=== PATIENT | male | born 1960 | race Hispanic/Latino ===

== ENCOUNTER 2016-12-23 08:11 | Emergency (ER) | payer BC ==
[2016-12-23 08:11] VITALS: BMI 34.5
[2016-12-23] MEDS ORDERED: Sodium Chloride 0.9% 1,000 ML IV STA (08:26)
--- NOTE | 2016-12-23 08:31 | ED PDOC ---
Arrival/HPI - General Chief Complaint: Abdominal Pain Time Seen by Provider: 12/23/16 08:12 Historian: Patient, Spouse - History of Present Illness Narrative History of Present Illness (Text): 12/23/16 08:19 A 56 year old male, whose medical history includes a ventral hernia, presents to the emergency department for abdominal pain and diarrhea, which began 1 day ago. The patient was sent in by his GI doctor, Dr. Kaye and is requesting a CT with PO contrast. The patient denies any fever, vomiting, urinary changes, or any other complaits at this time. Time/Duration: 24 hours Symptom Onset: Sudden Symptom Course: Unchanged Activities at Onset: Light Context: Home Past Medical History - Provider Review Nursing Documentation Reviewed: Yes - Infectious Disease Hx of Infectious Diseases: None - Tetanus Immunization Tetanus Immunization: Unknown - Cardiac Hx Hyperlipemia: Yes - Psychiatric Hx Depression: No Hx Emotional Abuse: No Hx Physical Abuse: No Hx Substance Use: No - Past Surgical History Past Surgical History: No Previous - Surgical History Hx Orthopedic Surgery: Yes Other/Comment: abd hrnia, - Anesthesia Hx Anesthesia Reactions: No - Suicidal Assessment Feels Threatened In Home Enviroment: No Family/Social History - Physician Review Nursing Documentation Reviewed: Yes Family/Social History: No Known Family HX Smoking Status: Unknown If Ever Smoked Hx Alcohol Use: Yes Frequency of alcohol use: Socially Hx Substance Use: No Allergies/Home Meds Allergies/Adverse Reactions: Allergies No Known Allergies Allergy (Verified 12/23/16 08:25) Home Medications: Home Meds Medication Instructions Recorded Confirmed Omeprazole 20 mg PO DAILY 12/23/16 12/23/16 Review of Systems - Physician Review All systems were reviewed & negative as marked: Yes - Review of Systems Constitutional: absent: Fevers Gastrointestinal: Abdominal Pain, Diarrhea. absent: Vomiting Genitourinary Male: absent: Dysuria, Frequency, Hematuria, Urinary Output Changes Physical Exam Vital Signs Reviewed: Yes Vital Signs Temp Pulse Resp BP Pulse Ox 12/23/16 13:49 98.1 F 72 17 133/78 98 12/23/16 11:01 73 17 142/86 98 12/23/16 08:26 98.0 F 83 17 165/89 H 98 12/23/16 08:20 98.8 F 85 16 131/85 96 Temperature: Afebrile Blood Pressure: Normal Pulse: Regular Respiratory Rate: Normal Appearance: Positive for: Well-Appearing, Non-Toxic, Comfortable Pain Distress: None Mental Status: Positive for: Alert and Oriented X 3 - Systems Exam Head: Present: Atraumatic, Normocephalic Pupils: Present: PERRL Extroacular Muscles: Present: EOMI Mouth: Present: Moist Mucous Membranes Neck: Present: Normal Range of Motion Abdomen: Present: Normal Bowel Sounds, Hernias (ventral hernia; soft & non- tender). No: Tenderness, Distention, Peritoneal Signs Upper Extremity: Present: Normal Inspection. No: Cyanosis, Edema Lower Extremity: Present: Normal Inspection. No: Edema Neurological: Present: GCS=15, CN II-XII Intact, Speech Normal Skin: Present: Warm, Dry, Normal Color. No: Rashes Psychiatric: Present: Alert, Oriented x 3, Normal Insight, Normal Concentration Medical Decision Making ED Course and Treatment: 12/23/16 08:20 Impression: A 56 year old male with abdominal pain. Differential Diagnosis included but are not limited to: r/o colitis, obstruction Plan: -- Abd & Pelvis CT -- Labs -- IV Fluids -- Urinalysis -- Reassess and disposition Progress Notes: 12/23/16 17:31 pt reasessed: states pain resolve.d pt aksing for dc. seen by gi dr kaye again. cleared for dc. - Lab Interpretations Lab Results: 12/23/16 08:30 12/23/16 08:30 Lab Results 12/23/16 09:00: Urine Color Yellow, Urine Appearance Clear, Urine pH 6.0, Ur Specific [place] >= 1.030, Urine Protein Trace H, Urine Glucose (UA) Negative, Urine Ketones Negative, Urine Blood Trace-lysed H, Urine Nitrate Negative, Urine Bilirubin Negative, Urine Urobilinogen 0.2, Ur Leukocyte Esterase Negative , Urine RBC 1 - 3, Urine WBC 0 - 2, Ur Epithelial Cells 0 - 2 12/23/16 08:30: Sodium 143, Potassium 4.5, Chloride 106, Carbon Dioxide 28, Anion Gap 14, BUN 23 H, Creatinine 1.1, Est GFR ( Amer) > 60, Est GFR ( Non-Af Amer) > 60, Random Glucose 99, Calcium 9.1, Total Bilirubin 0.7, AST 37, ALT 43, Alkaline Phosphatase 49, Total Protein 7.4, Albumin 4.1, Globulin 3.3, Albumin/Globulin Ratio 1.2, Lipase 70 12/23/16 08:30: PT 12.2, INR 1.11 H, APTT 29.6 12/23/16 08:30: WBC 8.8, RBC 4.90, Hgb 13.5 L, Hct 40.2 L, MCV 82.0, MCH 27.6, MCHC 33.6, RDW 14.2, Plt Count 316, MPV 8.6, Gran % 63.0, Lymph % (Auto) 25.8, Baldwin % (Auto) 10.1 H, Eos % (Auto) 0.8 L, Baso % (Auto) 0.3, Gran # 5.52, Lymph # 2.3, Baldwin # 0.9 H, Eos # 0.1, Baso # 0.03 - RAD Interpretation Radiology Orders: 12/23/16 08:26 ABD PELVIS PO & IV CONTRAST [CT] Stat - Medication Orders Current Medication Orders: Discontinued Medications Ciprofloxacin (Cipro) 500 mg PO STAT STA PRN Reason: Protocol Stop: 12/23/16 13:29 Last Admin: 12/23/16 13:44 Dose: 500 mg Sodium Chloride (Sodium Chloride 0.9%) 1,000 mls @ 1,000 mls/hr IV .Q1H STA Stop: 12/23/16 09:25 Last Admin: 12/23/16 08:42 Dose: 1,000 mls/hr eMAR Start Stop Document 12/23/16 08:42 IT (Rec: 12/23/16 08:42 IT [id number]) Intravenous Solution Start Date 12/23/16 Start Time 08:42 End Date 12/23/16 End time 09:42 Total Infusion Time 60 Metronidazole (Flagyl) 500 mg PO STAT STA PRN Reason: Protocol Stop: 12/23/16 13:29 Last Admin: 12/23/16 13:43 Dose: 500 mg - Scribe Statement The provider has reviewed the documentation as recorded by the Piter Parrish Provider Scribe Attestation: All medical record entries made by the Scribe were at my direction and personally dictated by me. I have reviewed the chart and agree that the record accurately reflects my personal performance of the history, physical exam, medical decision making, and the department course for this patient. I have also personally directed, reviewed, and agree with the discharge instructions and disposition. Disposition/Present on Arrival - Present on Arrival Any Indicators Present on Arrival: No History of DVT/PE: No History of Uncontrolled Diabetes: No Urinary Catheter: No History of Decub. Ulcer: No History Surgical Site Infection Following: None - Disposition Have Diagnosis and Disposition been Completed?: Yes Diagnosis: Colitis Disposition: HOME/ ROUTINE Disposition Time: 01:00 Condition: STABLE Discharge Instructions (ExitCare): Colitis (ED) Additional Instructions: please follow up with gi. return to er with worsening symptoms or concerns. Prescriptions: Ciprofloxacin HCl [Cipro] 500 mg PO BID #20 tablet metroNIDAZOLE [Flagyl] 500 mg PO TID #30 tab Referrals: [facility] Reza Prince, [Non-Staff] - Follow up with primary Francia Kaye MD [Medical Doctor] - Follow up with primary Forms: [facility] (Turkmen)
[2016-12-23 08:40] VITALS: RESP 17; O2SAT 98
[2016-12-23 09:01] LABS: ALB/GLOB RATIO 1.2 (1.1-1.8); ALKALINE PHOSPHATASE 49 U/L (38-126); ALT/SGPT 43 U/L (7-56); AST/SGOT 37 U/L (17-59); BILIRUBIN,TOTAL 0.7 mg/dL (0.2-1.3); BLOOD UREA NITROGEN 23 mg/dL (7-21); CALCIUM 9.1 mg/dL (8.4-10.5); CARBON DIOXIDE 28 mmol/L (21-33); CHLORIDE 106 mmol/L (98-107); GFR AFRICAN-AMERICAN > 60; GLUCOSE,RANDOM 99 mg/dL (70-110); LIPASE 70 U/L (23-300); POTASSIUM 4.5 mmol/L (3.6-5.0); SODIUM 143 mmol/L (132-148); TOTAL PROTEIN 7.4 g/dL (5.8-8.3)
[2016-12-23] MEDS ORDERED: Iohexol 240 (50 ml) ONE (09:20)
[2016-12-23 09:23] LABS: URINE BILIRUBIN NEGATIVE (NEGATIVE); URINE BLOOD TRACE-LYSED (NEGATIVE); URINE GLUCOSE (UA) NEGATIVE (NEGATIVE); URINE KETONE NEGATIVE (NEGATIVE); URINE LEUKOCYTE ESTERASE NEGATIVE Leu/uL (NEGATIVE); URINE PROTEIN TRACE mg/dL (<30 mg/dL); URINE UROBILINOGEN 0.2 E.U./dL (<1 E.U./dL)
[2016-12-23 09:24] LABS: URINE APPEARANCE CLEAR (CLEAR); URINE COLOR YELLOW (YELLOW)
[2016-12-23 09:25] LABS: BASO # 0.03 K/mm3 (0.0-2.0); BASO % 0.3 % (0.0-3.0); EOS # 0.1 (0.0-0.7); EOS % 0.8 % (1.5-5.0); GRAN # 5.52 (1.4-6.5); HEMATOCRIT 40.2 % (42.0-52.0); LYMPH # 2.3 (1.2-3.4); LYMPH % 25.8 % (22.0-35.0); MEAN CORPUSCULAR HEMOGLOBIN 27.6 pg (25.0-35.0); MEAN CORPUSCULAR HGB CONC 33.6 g/dl (31.0-37.0); MEAN PLATELET VOLUME 8.6 fl (7.0-11.0); MONO # 0.9 (0.1-0.6); MONO % 10.1 % (1.0-6.0); RED CELL DISTRIBUTION WIDTH 14.2 % (11.5-14.5); WHITE BLOOD COUNT 8.8 10^3/ul (4.5-11.0)
[2016-12-23 09:46] LABS: INR 1.11 (0.93-1.08); PARTIAL THROMBOPLASTIN TIME 29.6 Seconds (25.1-36.5)
[2016-12-23 09:54] LABS: URINE EPITHELIAL CELLS 0 - 2 /hpf (0-5); URINE WBC 0 - 2 /hpf (0-6)
--- NOTE | 2016-12-23 13:14 | CT ---
PROCEDURE: CT Abdomen and Pelvis with contrast HISTORY: abd pain, diarrhea, h/o of hernia COMPARISON: None. TECHNIQUE: Contrast dose: Omnipaque 240, 100 cc Radiation dose: Total exam DLP = 1363.2 mGy-cm. This CT exam was performed using one or more of the following dose reduction techniques: Automated exposure control, adjustment of the mA and/or kV according to patient size, and/or use of iterative reconstruction technique. FINDINGS: LOWER THORAX: Small hiatal hernia identified. Mild elevation the right hemidiaphragm. LIVER: Diffuse fatty infiltration of the liver is identified. No discrete mass or intrahepatic biliary duct dilatation. GALLBLADDER AND BILE DUCTS: Unremarkable. PANCREAS: Unremarkable. No gross lesion or ductal dilatation. SPLEEN: Unremarkable. ADRENALS: Unremarkable. No mass. KIDNEYS AND URETERS: Unremarkable. No hydronephrosis. No solid mass. VASCULATURE: Unremarkable. No aortic aneurysm. BOWEL: There is thickening of a segment of distal small bowel, possibly the ileum and even internal ileum in a pattern representing segmental enteritis, potentially terminal ileitis. Consider infectious or inflammatory bowel disease is including Crohn's disease. Other etiologies are possible including ischemia though enhancement of the abdominal aorta, celiac and superior mesenteric arteries as well as the inferior mesenteric artery appear normal. No bowel obstruction is appreciated. There is borderline distal small bowel thickening at the distal sigmoid segment the weight is largely collapsed and limited in evaluation. APPENDIX: Normal appendix. PERITONEUM: Unremarkable. No free fluid. No free air. A small upper abdominal ventral hernia is appreciated at the midline measuring 2.5 cm in the neck. No bowel involvement. LYMPH NODES: Unremarkable. No enlarged lymph nodes. BLADDER: Unremarkable. REPRODUCTIVE: Unremarkable. BONES: No acute fracture. OTHER FINDINGS: None. IMPRESSION: Segment latter arteritis is identified at the distal small bowel suspicious for potential regional enteritis. This is potentially suspicious given potential distal sigmoid colitis. Otherwise, consider other infectious or inflammatory causes. No bowel obstruction measure edema, ascites or free intrarenal gas. Hepatic steatosis. Midline upper abdominal ventral hernia.
[2016-12-23 13:51] VITALS: BP 133/78; PULSE 72; TEMP 98.1
== END 2016-12-23 13:51 | disposition home or self-care (01) ==
LOC: ED 08:11
DX: K52.9 Noninfective gastroenteritis and colitis, unspecified (principal); E78.5 Hyperlipidemia, unspecified
CPT/HCPCS: 74177; 80053; 81001; 83690; 85025; 85610; 85730; 96360; 99284; J7040; Q9966; Q9967